=== PATIENT | female | born 1960 | race Caucasian/White ===

== ENCOUNTER 2016-10-06 10:41 | Outpatient (RCR) | payer BC ==
--- OUTSIDE RECORDS SUMMARY | 2016-09-22 13:24 | XMS REPORT | Continuity of Care Document ---
Author Author [facility] Organization [facility] Address Unknown Phone Unavailable Care Team Providers Care Automatic Presser Name Role Phone ArevaloGarrick leigh III PCP [phone] Source Comments Some departments are not documenting in the electronic medical record. If you do not see the information that you expected, contact Release of Information in the Health Information Management department at [phone] for further assistance in locating additional records.[facility] Active Allergies and Adverse Reactions Allergen Noted Date Severity Reactions Comments Amoxicillin 08/15/2016 Medium RASH Bactrim 10/08/2015 Medium RASH Morphine 02/01/2016 Low SEE COMMENTS Altered Mental status Naproxen 10/08/2015 Medium RASH Prednisone 10/08/2015 Low ANXIETY Current Medications Prescription Sig. Disp. Refills Start End Date Status Date Fenofibrate 120 mg tab Take 145 mg by mouth. Active enalapril/hydrochlorothia Take by mouth daily. Active zide (VASERETIC) 5/12.5 mg tablet SERTRALINE HCL Take 150 mg by mouth. 1 Active (SERTRALINE PO) 1/2 tabs once daily pantoprazole DR Take 40 mg by mouth Active (PROTONIX) 40 mg tablet daily. MONTELUKAST SODIUM Take by mouth. Active (MONTELUKAST PO) zolpidem (AMBIEN) 10 mg Take 10 mg by mouth at Active tablet bedtime as needed for Sleep. fexofenadine(+) (ROBBIE) Take 180 mg by mouth Active 180 mg tablet daily. rOPINIRole (REQUIP) 1 mg Take 1 mg by mouth three Active tablet times daily. PSEUDOEPHEDRINE HCL Take 60 mg by mouth. Active (SUDAFED PO) vitamins, B complex tab Take 1 Tab by mouth Active daily. magnesium Active UBIDECARENONE (CO Q-10 Take by mouth. Active PO) ACETAMINOPHEN/CAFFEINE Take by mouth. Active (EXCEDRIN ASPIRIN FREE PO) potassium citrate Take 5 mEq by mouth Active (UROCIT-K) 5 mEq (540 mg) daily. tablet sucralfate (CARAFATE) 1 Take 1 g by mouth every 6 Active gram tablet hours. ranitidine(+) (ZANTAC) Take 150 mg by mouth Active 150 mg tablet twice daily. diphenhydrAMINE Take 25 mg by mouth every Active (BENADRYL) 25 mg capsule 6 hours as needed. ALPRAZOLAM PO Take by mouth. Active TRAMADOL HCL (TRAMADOL Take by mouth. Active PO) ERGOCALCIFEROL (VITAMIN Take by mouth. Active D2) (VITAMIN D2 PO) estradiol (ESTRACE) 0.01 Insert or Apply to Active % (0.1 mg/g) vaginal vaginal area daily. cream CLARITHROMYCIN (BIAXIN Take by mouth. Active PO) HYDROcodone/acetaminophen Take 1 Tab by mouth every Active (NORCO; VICODIN) 5-325 mg 4 hours as needed for tablet Pain omeprazole (PRILOSEC) 10 Take 10 mg by mouth Active mg capsule daily. cyanocobalamin (VITAMIN Inject 1 mL to area(s) as Active B-12, RUBRAMIN) 1,000 directed every 30 days. mcg/mL injection ASCORBATE CALCIUM Take 500 mg by mouth. Active (VITAMIN C PO) Active Problems Problem Noted Date Chronic recurrent sinusitis 02/19/2016 Overview: CT sinuses 10/08/15 - Previous bilateral sinonasal surgery with mild nonobstructed mucosal thickening within the remaining ethmoid air cells. Patient believes she only gets better after 3 week courses of Levaquin. 04/13/16 - IgG 612 (700-1600), IgA 99 (70-400), IgM 64 (40-230); 11/22 serotypes of pneumococcus were protective at >1.3, ANCAs/MPO/PR3 were negative, tetanus ab was protective; HIV negative; CH50 within normal limits; ESR 5; CRP 0.1; CMP showed elevated LFTs AST 51 (0-40) and ALT 55 (0-55). 04/21/16 - MBL function and lymphocyte subsets were within normal limits. - Will await further labs from her PCP to see what they have already done and then complete her immune evaluation for this. - Continue follow up with ENT who now feels that surgery may be an option but would not guarantee improvement. - She is likely atopic and would probably benefit from allergy immunotherapy, which she could do locally if her PCP would allow. We would need to repeat testing, which she was amenable to doing. - May also have a reflux component since she believes this is not well controlled. Could consider changing her management of this as well. - We discussed that we would like to try to find ways to minimize her need for Levaquin. - She may benefit from Qnasl, but is reluctant to use this due to emotional lability on prior intranasal steroids. Chronic rhinitis 02/19/2016 Overview: Freshly mowed grass is a big trigger for her along with dust, perfumes, areosols, rain, mold, cats, cold air, wind, temperature changes, humidity, and seasonal changes. Associated with headaches (which she believes are entirely sinus related). She is averse to using steroid nose sprays because they have made her emotional. Azolastine was not helpful and she has dryness on antihistamines. Currently only on 1/2 Robbie, Singulair, 1/2 Benadryl as needed, and 30 mg Sudafed as needed. She does take Afrin but intermittently without observed dependence. Currently doing saline irrigation with tap water. - Encouraged clean water source for irrigation. Gastroesophageal reflux disease without esophagitis 02/19/2016 Overview: Uncontrolled on pantoprazole and omeprazole at night. Has a history of hiatal hernia s/p surgical intervention. - Could consider GI evaluation for further management and assessing if this might be LPR that might contribute to her sinus issues. Most Recent Encounters Date Type Specialty Providers Description 09/15/2016 Orders Only Allergy,Immunology and Argenis Hayden DO Need for pneumococcal Rheumatology vaccination (Primary Dx); Recurrent infections; Chronic recurrent sinusitis 09/09/2016 Orders Only Allergy,Immunology and Argenis Hayden DO Recurrent infections Rheumatology (Primary Dx) 08/31/2016 Telephone Allergy,Immunology and Argenis Hayden DO Appointment Request Rheumatology 08/30/2016 Orders Only Allergy,Immunology and Argenis Hayden DO Chronic recurrent Rheumatology sinusitis; Recurrent infections 08/29/2016 Orders Only Allergy,Immunology and Argenis Hayden DO Recurrent infections Rheumatology 08/15/2016 Office Visit Otolaryngology Remi Nolan MD Chronic rhinitis (Primary Dx) 08/15/2016 Hospital Radiology Remi Nolan MD Encounter 08/12/2016 Screening Form 07/29/2016 Injection Allergy,Immunology and Rheumatology 07/28/2016 Orders Only Otolaryngology Remi Nolan MD Chronic pansinusitis (Primary Dx) 06/29/2016 Telephone Allergy,Immunology and Argenis Hayden DO Other - pneumovax Rheumatology Immunizations Name Dates Previously Given Next Due Pneumococcal Vaccine 07/29/2016 (23-Samra Adult) Social History Tobacco Use Types Packs/Day Years Used Date Never Smoker Smokeless Tobacco: Never Used Alcohol Use Drinks/Week oz/Week Comments Yes 1-2 Cans of 0.6 - 1.2 per year beer Last Filed Vital Signs Vital Sign Reading Time Taken Blood Pressure 130/62 08/15/2016 10:36 AM IND[employer]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 Pulse 78 08/15/2016 10:36 AM [employer]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 Temperature 36.8 C (98.2 F) 02/01/2016 8:55 AM CDT Respiratory Rate 20 02/01/2016 8:55 AM CDT Height 1.702 m (5' 7") 08/15/2016 10:36 AM [employer]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 Weight 99.791 kg (220 lb) 08/15/2016 10:36 AM IND[employer]RI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 Body Mass Index 34.45 08/15/2016 10:36 AM IND[employer]RI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 Oxygen Saturation 99% 02/01/2016 8:55 AM CDT Plan of Care Date Type Specialty Providers Description 09/30/2016 Appointment Allergy,Immunology and Rheumatology 12/26/2016 Appointment Allergy,Immunology and Argenis Hayden DO Rheumatology [address] [place] [address] [phone] (Fax) Health Maintenance Due Date Last Done Comments Hepatitis C Screening 1962 Physical (Comprehensive) 1969 Exam Pertussis Vaccine 1973 Tetanus Vaccine 1979 Cervical Cancer Screening 1983 Breast Cancer Screening 2002 Colorectal Cancer 02/13/2012 Screening Influenza Vaccine 06/09/2016 Results from Last 3 Months IMMUNOGLOBULIN G (IGG) (08/25/2016)Only the most recent of 2 results within the time period is included. Specimen Blood PNEUMOCOCCAL AB IGG (08/25/2016) Specimen Blood CT MAXIFACIAL/SINUS WO CONTRAST (08/15/2016 9:07 AM) Impressions 1. Redemonstration of prior sinonasal surgery with mild mucosal thickening of the remaining ethmoid air cells. 2. 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 Approved by Michelle Kenney M.D. on 08/15/2016 11:54 AM By my electronic signature, I attest that I have personally reviewed the images for this examination and formulated the interpretations and opinions expressed in this report Finalized by BOUCHRA NORTH M.D. on 08/15/2016 12:13 PM. Dictated by Michelle Kenney M.D. on 08/15/2016 10:26 AM. Narrative EXAM: CT MAXILLOFACIAL HISTORY: 56-year-old female. Chronic pansinusitis. TECHNIQUE:Multiple contiguous axial images were obtained through the maxillofacial region with coronal reformatted images. COMPARISON: CT maxillofacial October 08, 2015 FINDINGS: The visualized intracranial structures are unremarkable. There is an unchanged 6 mm left orbital mass lesion (series 2 image 73). Prior sinonasal surgery with maxillary uncinectomies and partial ethmoidectomies are redemonstrated. Persistent mild mucosal thickening of the remaining ethmoid air cells. The frontal sinuses and recesses are clear. The sphenoid sinuses, sphenoid sinus ostia, and sphenoethmoidal recesses are patent. The maxillary sinuses and ostiomeatal units are clear. The nasal cavity is unremarkable. The nasal septum is midline.The dentition is unremarkable. Procedure Note Interface, Radiant Results - MonAug 15, 2016 12:16 PM IND[employer]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 EXAM: CT MAXILLOFACIAL HISTORY: 56-year-old female. Chronic pansinusitis. TECHNIQUE: Multiple contiguous axial images were obtained through the maxillofacial region with coronal reformatted images. COMPARISON: CT maxillofacial October 08, 2015 FINDINGS: The visualized intracranial structures are unremarkable. There is an unchanged 6 mm left orbital mass lesion (series 2 image 73). Prior sinonasal surgery with maxillary uncinectomies and partial ethmoidectomies are redemonstrated. Persistent mild mucosal thickening of the remaining ethmoid air cells. The frontal sinuses and recesses are clear. The sphenoid sinuses, sphenoid sinus ostia, and sphenoethmoidal recesses are patent. The maxillary sinuses and ostiomeatal units are clear. The nasal cavity is unremarkable. The nasal septum is midline. The dentition is unremarkable. IMPRESSION 1. Redemonstration of prior sinonasal surgery with mild mucosal thickening of the remaining ethmoid air cells. 2. 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 Approved by Michelle Kenney M.D. on 08/15/2016 11:54 AM By my electronic signature, I attest that I have personally reviewed the images for this examination and formulated the interpretations and opinions expressed in this report Finalized by BOUCHRA NORTH M.D. on 08/15/2016 12:13 PM. Dictated by Michelle Kenney M.D. on 08/15/2016 10:26 AM.
[~2016-10-06 10:41] MED LIST: AC325T PO; ASPI1TAB PO; DEPO ESTRADIOL IM/IV/SC; DIPH25TA82 PO; DIPH50CA PO; ENAL1TAB19 PO; FENO145T18 PO; FEXO60TA PO; HYDR-3857 PO; LACT1TAB12 PO; LVF500T GT; MAGN400C PO; MELO7.5O PO; MONT10TA21 PO; OMEP-10 GT; PANT20TA2 PO; POTA99TA15 PO; PSEU120T53 PO; ROPI1TAB GT; SERT100T8 PO; SUCR1TAB23 PO; UBID200C PO; VIT D PO; VITA1CAP59 PO; ZOLP10TA5 PO; [UNRECOGNIZED DRUG - OTHER] IM/IV/SC
== END 2016-10-18 13:08 | disposition home or self-care (01) ==
PROVIDERS: ATTEND Nurse Practitioner Family
DX: M25.532 Pain in left wrist (principal); Z98.890 Other specified postprocedural states

== ENCOUNTER → 2017-10-25 | Outpatient (CLI) | payer BC ==
--- NOTE | 2017-10-25 19:14 | Diagnostic Imaging Report ---
INDICATION: Digital mammogram bilateral screening. The study was compared to prior exams of 08/26/2016, 02/13/2015 and 05/30/13. At this time, there are no current complaints. The current study was also evaluated with a Computer Aided Detection (CAD) system. FINDINGS: The fibroglandular tissue in both breasts is heterogeneously dense. This does limit the sensitivity of this exam. Overall, there does not appear to have been any significant change when compared to the prior study. No primary or secondary sign of malignancy is noted. IMPRESSION: There is no radiographic evidence for malignancy. ACR BI-RADS Category 1: Negative. Result letter will be mailed to the patient. Note: At least 10% of breast cancer is not imaged by mammography. Dictated on workstation # [id number]
== END ==
LOC: RAD 15:47
PROVIDERS: ATTEND Nurse Practitioner
DX: Z12.31 Encounter for screening mammogram for malignant neoplasm of breast (principal)
CPT/HCPCS: 77067

== ENCOUNTER → 2018-09-24 | Outpatient (CLI) | payer BC ==
--- NOTE | 2018-09-24 14:37 | Diagnostic Imaging Report ---
PROCEDURE: MR imaging of the brain without contrast. TECHNIQUE: Multiplanar, multisequence MR imaging of the brain was performed without contrast. INDICATION: Headaches. COMPARISON: No prior studies are available for comparison. FINDINGS: Ventricles and sulci are within normal limits. No diffusion restriction is seen. The normal expected flow-voids within the carotid siphons are seen. Occasional subcortical white matter foci are noted, nonspecific but perhaps on the basis of chronic microvascular ischemia. There is no midline shift. No acute intra-axial or extra-axial hemorrhage is detected. No mass lesion is identified on this noncontrast study. Corpus callosum is unremarkable. The sella and parasellar structures are unremarkable. IMPRESSION: Essentially unremarkable noncontrast MRI of the brain. No acute feature is detected. Dictated by: Dictated on workstation # [id number]
== END ==
LOC: RAD 13:27
PROVIDERS: ATTEND Internal Medicine
DX: R51 Headache (principal)
CPT/HCPCS: 70551

== ENCOUNTER → 2019-08-30 | Outpatient (CLI) | payer BC ==
[~2019-08-30] VITALS: Ht 172 cm; Wt 99.0 kg
[~2019-08-30] MED LIST changes: +CATHETER FLUSH 10 ML SYR IV PRN
[2019-08-30 08:16] VITALS: BP 170/74
== END ==
LOC: CARD 06:50
PROVIDERS: ATTEND Internal Medicine
DX: R07.9 Chest pain, unspecified (principal)
CPT/HCPCS: 78452; 93017

== ENCOUNTER → 2019-08-30 | Outpatient (CLI) | payer BC ==
[~2019-08-30] MED LIST changes: -CATHETER FLUSH 10 ML SYR IV PRN
--- NOTE | 2019-08-30 11:56 | Diagnostic Imaging Report ---
INDICATION: Routine screening. COMPARISON: Comparison is made with prior mammograms of 10/25/2017 and 08/26/2016. 2-D and 3-D bilateral screening mammography was performed. The current study was also evaluated with a Computer Aided Detection (CAD) system. 3-D tomosynthesis was also performed and reviewed. FINDINGS: Both breasts are heterogeneously dense, limiting the sensitivity of mammography. There are innumerable microcalcifications throughout the right breast, similar to prior exam. This does significantly compromise evaluation. There is a grouping of microcalcifications in the upper left breast at mid depth best seen on the MLO view. These appear to be slightly lateral to the nipple line on the CC view. Additional views would be recommended as these do appear to be somewhat increased. No mass is identified. Axillae are unremarkable. IMPRESSION: Slight increase in left breast calcifications, as described. Additional views are recommended for further evaluation. ACR BI-RADS Category 0: Incomplete. (Needs additional imaging evaluation). Result letter will be mailed to the patient. Note: At least 10% of breast cancer is not imaged by mammography. Dictated by: Dictated on workstation # [id number]
== END ==
LOC: RAD 09:17
PROVIDERS: ATTEND Nurse Practitioner
DX: Z12.31 Encounter for screening mammogram for malignant neoplasm of breast (principal); Z01.419 Encounter for gynecological examination (general) (routine) without abnormal findings; R92.1 Mammographic calcification found on diagnostic imaging of breast
CPT/HCPCS: 77067

== ENCOUNTER 2019-09-18 06:32 | Outpatient (CLI) | payer BC ==
[~2019-09-18] VITALS: Ht 172.7 cm; Wt 97.7 kg
[2019-09-18] MEDS ORDERED: MONT10TA24 PO (15:29)
[2019-09-18] MEDS ORDERED: ENAL1TAB8 PO (15:29)
[2019-09-18] MEDS ORDERED: PSEU30TA35 PO (15:29)
[2019-09-18] MEDS ORDERED: NABU750T PO (15:29)
[2019-09-18] MEDS ORDERED: FENO145T37 PO (15:29)
[2019-09-18] MEDS ORDERED: ROPI1TAB2 PO (15:29)
[2019-09-18] MEDS ORDERED: DEXT1CAP3 PO (15:29)
[2019-09-18] MEDS ORDERED: METO-333 PO (15:29)
[2019-09-18] MEDS ORDERED: ZOLP10TA5 PO (15:29)
[2019-09-18] MEDS ORDERED: CNC1KV IM (15:29)
[2019-09-18] MEDS ORDERED: ACHD5005 PO (15:29)
[2019-09-18] MEDS ORDERED: CHOL500049 PO (15:29)
[2019-09-18] MEDS ORDERED: MINO100C2 PO (15:29)
== END 2019-09-18 15:31 ==
LOC: PREOP 06:32
PROVIDERS: ATTEND Surgery
DX: Z01.818 Encounter for other preprocedural examination (principal)

== ENCOUNTER → 2019-09-19 | Outpatient (CLI) | payer BC ==
[~2019-09-19] MED LIST changes: +ACHD5005 PO; +CHOL500049 PO; +CNC1KV IM; +DEXT1CAP3 PO; +ENAL1TAB8 PO; +FENO145T37 PO; +METO-333 PO; +MINO100C2 PO; +MONT10TA24 PO; +NABU750T PO; +PSEU30TA35 PO; +ROPI1TAB2 PO
--- NOTE | 2019-09-20 07:13 | Diagnostic Imaging Report ---
Diagnostic left mammogram. Indication: Abnormal screening mammogram. The recent screening mammogram performed on 08/30/2019 noted a group of microcalcifications in the superior aspect of the left breast at mid depth. The compression/magnification views of this area show the calcifications are numerous and pleomorphic. They are technically indeterminate. I would recommend a stereotactic biopsy be performed to exclude malignancy. Impression: 1. A stereotactic biopsy of the left breast recommended to exclude malignancy. 2. The results were discussed with SAGAR Turner. ACR BI-RADS Category 4: Suspicious abnormality. Result letter will be mailed to the patient. Note: At least 10% of breast cancer is not imaged by mammography. Dictated by: Dictated on workstation # [id number]
== END ==
LOC: RAD 14:11
PROVIDERS: ATTEND Nurse Practitioner
DX: R92.8 Other abnormal and inconclusive findings on diagnostic imaging of breast (principal)

== ENCOUNTER 2019-09-25 12:04 | Day surgery (SDC) | payer BC ==
--- NOTE | 2019-09-18 05:22 | HISTORY AND PHYSICAL ---
DATE OF SERVICE: ATTENDING PHYSICIAN: Dr. Arevalo. PROCEDURE DATE: 09/25/2019. HISTORY OF PRESENT ILLNESS: The patient is a 59-year-old female who is known to us. She does have a long-standing history of gastroesophageal reflux disease, which was medically treated. She was resistant to medical therapy and underwent a hiatal hernia repair and hill gastropexy in 2003. Since that surgery, she reports that her reflux had improved; however, time has reoccurred. She reports that this was usually due to a diet and foods did seem to make her reflux worse. She did have an EGD done by us in 2012, when she was found to have reflux esophagitis class B as well as an intact previous hill gastropexy and mild recurrence of hiatal hernia and mild gastritis. She then was seen again for same symptoms in 2014 where she underwent another EGD with biopsy and was found to have reflux esophagitis class B and intact previous hill gastropexy with recurrent hiatal hernia that was approximately 1 to 2 cm in size. There was moderate severity gastritis with superficial erosions and no ulceration. There was a mild duodenitis. Biopsies were negative for H. pylori as well as negative for Lucas's esophagus. On today's visit, the patient reports again that for the last 2 months, she has been having increasing heartburn and reflux. She reports that she was initially on omeprazole and reports that this did become ineffective. She reports that she then tried Pepcid as well as Zantac and reports that these were both ineffective also. She reports she did try [id number] round of Nexium and reports that she believes that this did help some; however, her symptoms have since then reoccurred. She does report occasional episodes of nausea as well as vomiting. She also reports epigastric burning and discomfort. PAST MEDICAL HISTORY: Hypertension, hypercholesterolemia, depression, hiatal hernia, gastroesophageal reflux disease, migraines, chronic sinusitis, osteoarthritis, obstructive sleep apnea, restless legs syndrome. PAST SURGICAL HISTORY: Laparoscopic cholecystectomy in 2002, laparoscopic hill gastropexy in 2003, left ganglion cyst excision in 2002, sinus surgery and repair of deviated septum in 2003, L4-L5 diskectomy in 1997, total hysterectomy in 2008, left removal of the metacarpal bone to the left wrist in 2014. ALLERGIES: BACTRIM, NAPROXEN, STEROIDS. MEDICATIONS: Enalapril/hydrochlorothiazide b.i.d., TriCor daily, Zoloft 150 mg daily, Ambien 10 mg at bedtime, Sudogest, Maxalt 10 mg, Nuedexta 20 mg b.i.d., ropinirole 1 mg daily, minocycline, montelukast, Benadryl, vitamin D, vitamin B12 shot, estrogen shot, metoprolol. SOCIAL HISTORY: Negative for smoke for alcohol. FAMILY HISTORY: Mother with melanoma, hypertension, diabetes. Paternal grandmother with breast cancer. Father with diabetes, hypertension, hypercholesterolemia. Maternal grandmother, uterine cancer, diabetes. Maternal grandfather, myocardial infarction, hypertension. Sister, diabetes. VITAL SIGNS: Stable. Current weight 219.5, 5 feet 8 inches. REVIEW OF SYSTEMS: Well-nourished female, in no acute distress. She is not experiencing any shortness of breath or difficulty breathing. No chest pain, palpitations or diaphoresis. She does report occasional episodes of nausea, vomiting as well as epigastric burning pain and discomfort. She does report episodes of heartburn and reflux. No diarrhea or constipation. No red blood per rectum. No dark tarry stools. No fever or chills. No recent inadvertent weight loss. All other review of systems negative. PHYSICAL EXAMINATION: CHEST: Clear. Good breath sounds bilaterally. HEART: Regular, no murmurs. EXTREMITIES: No lower extremity edema. Negative Homans sign. HEENT: No scleral icterus. NECK: No cervical lymphadenopathy. ABDOMEN: Soft, nontender, nondistended. No palpable masses. No organomegaly. SKIN: Warm, dry and pink. NEUROLOGIC: Awake, alert and oriented x3. ASSESSMENT AND PLAN: A 59-year-old female with symptomatic gastroesophageal reflux disease who also has what sounds to be a history of peptic ulcer disease. At this time, we will recommend proceeding with an EGD. The risks and benefits of the procedure as well as the procedure and home care instructions were explained to the patient. The patient verbalized understanding of instructions and agrees to proceed as planned. At this time, we will proceed with scheduling the patient for an EGD. Job ID: [id number] DocumentID: [id number] Dictated Date: 09/16/2019 18:03:24 Public Health Advisor Date: 09/16/2019 18:56:18 Dictated By: EMMANUEL DIAZ
[~2019-09-25] VITALS: Ht 162.6 cm; Wt 97.7 kg
[2019-09-25] MEDS ORDERED: LACTATED RINGERS 1,000 ML IV ONE (12:19)
[2019-09-25] MEDS ORDERED: LACTATED RINGERS 1,000 ML IV STA (12:19)
[2019-09-25] MEDS ORDERED: HURRICAINE EXT TUBE (BENZOCAINE) XX PRN (12:30)
[2019-09-25] MEDS ORDERED: LIDOCAINE JELLY 2% 6 ML SYRINGE MM PRN (12:30)
[2019-09-25 12:57] VITALS: BP 147/80
--- NOTE | 2019-09-25 14:09 | Progress Note-Pre Operative ---
Pre-Operative Progress Note H&P Reviewed The H&P was reviewed, patient examined and no changes noted. Date Seen by Provider: Sep 25, 2019 Time Seen by Provider: 13:00 Date H&P Reviewed: Sep 25, 2019 Time H&P Reviewed: 13:00 Pre-Operative Diagnosis: BRITTNEY VALLADARES MD Sep 25, 2019 14:09
[2019-09-25] MEDS ORDERED: PANT40TA2 PO (14:10)
--- NOTE | 2019-09-25 14:11 | Discharge Inst-Surgical ---
D/C Lap Instructions-KIDHattie New, Converted, or Re-Newed RX: RX on Chart Follow Up Activity as tolerated High Fiber Diet 25g or more per day Avoid Alcohol, Caffeine, Spicy [place] and Acid foods. Drink 64 fluid oz or more of fluids per day. Symptoms to Report: Fever over 101 degree F, Nausea/Vomiting If any problems/questions: Contact your physician or go to Emergency Room BRITTNEY FERRARI MD Sep 25, 2019 14:11
[2019-09-25] MEDS ORDERED: HYDROcodone/APAP 5 MG/325 MG (LORTAB) TAB PO PRN (14:15)
[2019-09-25] MEDS ORDERED: ONDANSETRON 4 MG/2 ML (SDV) Z0FRAN IVP PRN (14:15)
[2019-09-25] MEDS ORDERED: ACETAMINOPHEN 325 MG TABLET PO PRN (14:15)
[2019-09-25] MEDS ORDERED: morphine INJ 10 MG/ML 1ML (SYR OR VIAL) IVP PRN ×2 (14:15)
[2019-09-25] MEDS ORDERED: proPOfol 200 MG/20 ML (DIPRIVAN) VIAL IV ONE (14:35)
[2019-09-25] MEDS ORDERED: MIDAZOLAM 2 MG/2 ML (VERSED) VIAL ONE (14:36)
[2019-09-25] MEDS ORDERED: LIDOCAINE JELLY 2% 6 ML SYRINGE ONE (14:50)
[2019-09-25 15:00] VITALS: BP 149/75
[2019-09-25 15:05] VITALS: BP 157/78
[2019-09-25 15:10] VITALS: BP 140/72
--- NOTE | 2019-09-25 15:10 | Anesthesia-General Post-Op ---
MAC Patient Condition Mental Status/LOC: Same as Preop Cardiovascular: Satisfactory Nausea/Vomiting: Absent Respiratory: Satisfactory Pain: Controlled Complications: Absent Post Op Complications Complications None Follow Up Care/Instructions Patient Instructions None needed. Anesthesiology Discharge Order Discharge Order Patient is doing well, no complaints, stable vital signs, no apparent adverse anesthesia problems. DEANN BLAKE DO Sep 25, 2019 15:10
--- NOTE | 2019-09-25 15:13 | Progress Note-Post Operative ---
Post-Operative Progess Note Surgeon (s)/Mill Feeder (s) Surgeon BRITTNEY FERRARI MD Mill Feeder: none Pre-Operative Diagnosis GERD Post-Operative Diagnosis reflux esophagitis(stage 2), recurrent HH(3cm), moderate gastritis. Procedure & Operative Findings Date of Procedure 09/25/19 Procedure Performed/Findings EGD with bx. Anesthesia Type mac Estimated Blood Loss Estimated blood loss (mL): minimal Specimens/Packing Specimens Removed ge jxn, antrum BRITTNEY FERRARI MD Sep 25, 2019 15:13
[2019-09-25 15:15] VITALS: BP 140/72
[2019-09-25 15:38] VITALS: BP 135/73
--- NOTE | 2019-09-26 01:03 | OPERATIVE REPORT ---
DATE OF SERVICE: 09/25/2019 ATTENDING PRIMARY CARE PHYSICIAN: Dr. Arevalo. PREOPERATIVE DIAGNOSIS: Gastroesophageal reflux disease. POSTOPERATIVE DIAGNOSES: Reflux esophagitis stage II with a recurrent hiatal hernia approximately 3 cm in size, mild to moderate gastritis. PROCEDURE: EGD with biopsy. SURGEON: Brittney Jones MD ANESTHESIA: Monitored anesthesia care. ESTIMATED BLOOD LOSS: Minimal. FINDINGS: Reflux esophagitis stage II with a recurrent hiatal hernia approximately 3 cm in size, mild to moderate gastritis. DISPOSITION: The patient tolerated the procedure well. INDICATIONS: The patient is a 59-year-old female known to us. She had a longstanding history of gastroesophageal reflux disease, which was initially medically treated. She did not respond to medical therapy and underwent a hiatal hernia repair as well as a Hill gastropexy in 2003. She has had recurrent reflux and did have an EGD done by us in 2012 and found to have a reflux esophagitis stage II as well as an intact previous Hill gastropexy; however, has had a recurrent hiatal hernia identified and some mild gastritis. She was then seen again in 2014 where again she was having symptoms and biopsies were negative for Lucas's esophagus as well as negative for H. pylori. She again reports that in the past two months she has had increased heartburn, reflux and initially started omeprazole and has also tried Pepcid and Zantac; however, these have been ineffective. DESCRIPTION OF PROCEDURE: The patient was brought to the endoscopy suite, laid in left lateral decubitus position. After adequate IV pain and sedative medications and monitored anesthesia care, the mouthpiece was applied. The endoscope was placed in the mouth, visualizing the pharynx and hypopharyngeal region. Vocal cords, epiglottis and vallecula identified and appeared to be normal. Endoscope was then gently intubated. Esophageal opening and esophagus insufflated. The endoscope was then advanced to the valves of King of the rectum through the 1st, 2nd and 3rd portion of the esophagus at the level of the GE junction, a reflux esophagitis stage II identified. There were no ulcers or strictures identified in this region. A biopsy was taken of the GE junction with forceps with visualization of good hemostasis. The endoscope was then advanced into the stomach and endoscope retroflexed, visualizing a recurrent hiatal hernia approximately 3 cm in size; however, the wrap appears to be intact. There was a mild to moderate gastritis. No formal ulcerations, polyps, or any neoplasms identified. A biopsy was taken of the antrum to rule out H. pylori. Endoscope was then advanced to the pylorus and the first and second portion of the duodenum, which appeared normal with no distal obstructions. The endoscope was then slowly withdrawn while taking a second look and suctioning of residual air with no additional findings. The patient tolerated the procedure well. We will recommend continued medical management with the necessary lifestyle and diet accommodation including avoidance of caffeinated beverages, spicy, greasy and acidic foods as well as take in small and more frequent meals and avoidance of eating at night. Any form of regularly scheduled diet and exercise regimen for weight loss would also help with her symptoms. We will also start her on Protonix 40 mg daily. If she is medically compliant and continues to have symptoms, she may need to have her recurrent hiatal hernia repair. However, we will recommend referral to a tertiary center for reoperation in this region. Job ID: [id number] DocumentID: [id number] Dictated Date: 09/25/2019 15:06:35 [employer] Date: 09/26/2019 01:02:12 Dictated By: BRITTNEY JONES MD MTDD
== END 2019-09-25 15:40 ==
LOC: ENDO 12:04
PROVIDERS: ATTEND Surgery
DX: K21.0 Gastro-esophageal reflux disease with esophagitis (principal); K44.9 Diaphragmatic hernia without obstruction or gangrene; K29.30 Chronic superficial gastritis without bleeding; K29.80 Duodenitis without bleeding; I10 Essential (primary) hypertension; E78.00 Pure hypercholesterolemia, unspecified; F32.9 Major depressive disorder, single episode, unspecified; G43.909 Migraine, unspecified, not intractable, without status migrainosus; J32.9 Chronic sinusitis, unspecified; M19.90 Unspecified osteoarthritis, unspecified site; G47.33 Obstructive sleep apnea (adult) (pediatric); G25.81 Restless legs syndrome; Z90.49 Acquired absence of other specified parts of digestive tract; Z79.52 Long term (current) use of systemic steroids; Z82.49 Family history of ischemic heart disease and other diseases of the circulatory system; Z83.3 Family history of diabetes mellitus; Z80.49 Family history of malignant neoplasm of other genital organs; Z88.2 Allergy status to sulfonamides; Z88.1 Allergy status to other antibiotic agents; Z88.8 Allergy status to other drugs, medicaments and biological substances; E66.01 Morbid (severe) obesity due to excess calories; Z68.37 Body mass index [BMI] 37.0-37.9, adult
CPT/HCPCS: 88305

== ENCOUNTER → 2019-10-03 | Outpatient (CLI) | payer BC ==
[~2019-10-03] VITALS: Ht 172.7 cm; Wt 98.2 kg
[~2019-10-03] MED LIST changes: +LIDOCAINE 1% INJ 20 ML 20 ML VIAL INJ ONE; +LIDOCAINE 1% INJ 20 ML 20 ML VIAL ONE; +PANT40TA2 PO
--- NOTE | 2019-10-03 19:03 | Diagnostic Imaging Report ---
INDICATION: Left breast calcifications. Patient presents for stereotactic biopsy. COMPARISON: Correlation is made with prior mammograms from 08/30/2019. PROCEDURE: Patient was brought to the stereotactic suite and placed in a chair in a sitting upright position. The left breast was positioned lateral medially. The calcifications in the superior left breast were stereotactically targeted. The skin of the lateral left breast was then prepped and draped in the usual sterile fashion. A small amount of 1% lidocaine was utilized for local anesthesia. The 8 gauge biopsy needle was advanced from a lateral medial approach into the left breast and placed per stereotactic coordinates. A total of four core samples were obtained with the vacuum-assisted device. Specimen radiograph demonstrates a cluster of calcifications located within sample number 1, 2 and 4. A marker clip was then deployed. Needle was removed and hemostasis was obtained using manual compression. Postprocedure 2D CC and lateral mammography was performed. All images were viewed on dedicated workstation. Follow-up post procedure mammogram demonstrates the marker clip in the far medial aspect of the left breast on the CC view. Calcifications were located more laterally on the preprocedure imaging. In reviewing the preprocedure imaging, no definite calcifications are seen in the medial aspect of the left breast. Therefore, it is felt that biopsy was indeed obtained in the more lateral aspect of the left breast; however, there may have been clip migration to the far medial aspect. We will await biopsy results and then management decision can be made at that time as to performing follow-up mammography versus repeat biopsy attempt. IMPRESSION: Left breast stereotactic biopsy, as described. Dictated by: Dictated on workstation # [id number]
== END ==
LOC: RAD 10:24
PROVIDERS: ATTEND Nurse Practitioner
DX: R92.1 Mammographic calcification found on diagnostic imaging of breast (principal); R92.8 Other abnormal and inconclusive findings on diagnostic imaging of breast
CPT/HCPCS: 19081